=== PATIENT | female | born 1970 | race Caucasian/White ===

== ENCOUNTER 2018-09-08 16:09 | Emergency (ER) | payer OTHER ==
[~2018-09-08] VITALS: Ht 160 cm; Wt 60.2 kg
[2018-09-08 16:13] VITALS: Ht 160 cm; Wt 60.2 kg
[2018-09-08] MEDS ORDERED: ONDANSETRON 4 MG INJ IV STA (19:41)
[2018-09-08] MEDS ORDERED: SOD CHLORIDE 0.9% 1,000 ML IV STA (19:41)
[2018-09-08] MEDS ORDERED: IBUP-1542 PO (21:21)
[2018-09-08] MEDS ORDERED: ONDA4TAB14 PO (21:21)
--- NOTE | 2018-09-08 22:03 | ERD ---
ER Documentation Chief Complaint Chief Complaint ABD PAIN ,VOMITING WITH DIZZINESS SINCE MORNING HPI Patient is a 47-year-old female with hypertension who presents with dizziness and vomiting. The patient started this morning at 7 AM with the symptoms. The patient has mild abdominal pain she says from vomiting. The patient has no diarrhea. She has no fevers. She has had no treatment as of yet. The patient has no sick contacts. She does have a primary doctor. ROS All systems reviewed and are negative except as per history of present illness. Medications Home Meds Active Scripts Ondansetron (Ondansetron Odt) 4 Mg Tab.rapdis, 4 MG PO Q6H PRN for NAUSEA AND/OR VOMITING, #10 TAB Prov:BRENT HURTADO MD 09/08/18 Ibuprofen* (Motrin*) 600 Mg Tab, 600 MG PO Q6H PRN for PAIN AND OR ELEVATED TEMP, #30 TAB Prov:BRENT HURTADO MD 09/08/18 Allergies Allergies: Coded Allergies: No Known Allergy (Unverified , 09/08/18) PMhx/Soc Medical and Surgical Hx: pt denies Surgical Hx Hx Cardiac Disorders: Yes (HTN) Hx Alcohol Use: No Hx Substance Use: No Hx Tobacco Use: No Smoking Status: Never smoker FmHx Family History: No diabetes Physical Exam Vitals Vital Signs Date Temp Pulse Resp B/P (MAP) Pulse Ox O2 O2 Flow FiO2 Time Delivery Rate 09/08/18 97.2 66 18 196/95 100 16:13 (128) Physical Exam Const: No acute distress Head: Atraumatic Eyes: Normal Conjunctiva ENT: Normal External Ears, Nose and Mouth. Neck: Full range of motion. No meningismus. Resp: Clear to auscultation bilaterally Cardio: Regular rate and rhythm, no murmurs Abd: Soft, non tender, non distended. Normal bowel sounds Skin: No petechiae or rashes Back: No midline or flank tenderness Ext: No cyanosis, or edema Neur: Awake and alert Psych: Normal Mood and Affect Result Diagram: 09/08/18194809/08/181948 Results 24 hrs Laboratory Tests Test 09/08/18 19:49 09/08/18 19:56 White Blood Count 9.8 10^3/ul Red Blood Count 4.63 10^6/ul Hemoglobin 14.0 g/dl Hematocrit 42.1 % Mean Corpuscular Volume 90.9 fl Mean Corpuscular Hemoglobin 30.2 pg Mean Corpuscular Hemoglobin Concent 33.3 g/dl Red Cell Distribution Width 12.7 % Platelet Count 386 10^3/UL Mean Platelet Volume 9.6 fl Immature Granulocytes % 0.300 % Neutrophils % 79.1 % Lymphocytes % 18.7 % Monocytes % 1.7 % Eosinophils % 0.0 % Basophils % 0.2 % Nucleated Red Blood Cells % 0.0 /100WBC Immature Granulocytes # 0.030 10^3/ul Neutrophils # 7.7 10^3/ul Lymphocytes # 1.8 10^3/ul Monocytes # 0.2 10^3/ul Eosinophils # 0.0 10^3/ul Basophils # 0.0 10^3/ul Nucleated Red Blood Cells # 0.0 10^3/ul Urine Color YELLOW Urine Clarity CLOUDY Urine pH 8.0 Urine Specific [place] 1.023 Urine Ketones 1+ mg/dL Urine Nitrite NEGATIVE mg/dL Urine Bilirubin NEGATIVE mg/dL Urine Urobilinogen NEGATIVE mg/dL Urine Leukocyte Esterase NEGATIVE Adriana/ul Urine Microscopic RBC 9 /HPF Urine Microscopic WBC 4 /HPF Urine Squamous Epithelial Cells FEW /HPF Urine Amorphous Crystals FEW /HPF Urine Bacteria FEW /HPF Urine Mucus FEW /HPF Urine Hemoglobin NEGATIVE mg/dL Urine Glucose NEGATIVE mg/dL Urine Total Protein NEGATIVE mg/dl Sodium Level 138 mmol/L Potassium Level 4.5 mmol/L Chloride Level 101 mmol/L Carbon Dioxide Level 27 mmol/L Anion Gap 10 Blood Urea Nitrogen 19 mg/dl Creatinine 0.59 mg/dl Est Glomerular Filtrat Rate mL/min > 60 mL/min Glucose Level 100 mg/dl Calcium Level 10.2 mg/dl Total Bilirubin 0.3 mg/dl Direct Bilirubin 0.00 mg/dl Indirect Bilirubin 0.3 mg/dl Aspartate Amino Transf (AST/SGOT) 41 IU/L Alanine Aminotransferase (ALT/SGPT) 22 IU/L Alkaline Phosphatase 107 IU/L Total Protein 10.0 g/dl Albumin 5.2 g/dl Globulin 4.80 g/dl Albumin/Globulin Ratio 1.08 Lipase 74 U/L POC Beta HCG, Qualitative NEGATIVE Current Medications Medications Dose Sig/Alba Start Time Status Last (Trade) Ordered Route PRN Stop Time Admin Dose Reason Admin Sodium 1,000 ml @ Q1H STAT 09/08/18 DC 09/08/18 Chloride 1,000 mls/hr IV 19:41 19:56 09/08/18 20:40 Ondansetron 4 mg ONCE STAT 09/08/18 DC 09/08/18 HCl (Zofran IV 19:41 19:56 Inj) 09/08/18 19:42 Procedures/MDM Patient is a 47-year-old female with hypertension who presents with dizziness and vomiting. Laboratory studies were basically normal. The patient was given fluids and Zofran. At this point I doubt serious or joint abnormality. I doubt acute coronary syndrome. I doubt cholecystitis, pancreatitis, appendicitis, or bowel obstruction. I believe outpatient management is appropriate at this time. She will need close follow-up with the primary doctor within 24-48 hours. Departure Diagnosis: Primary Impression: Vomiting Vomiting type: unspecified Vomiting Intractability: non-intractable Nausea presence: with nausea Qualified Codes: R11.2 - Nausea with vomiting, unspecified Additional Impression: Abdominal pain Abdominal location: generalized Qualified Codes: R10.84 - Generalized abdominal pain Condition: Fair Patient Instructions: Abdominal Pain, Vomiting (6Y-Adult) Referrals: Dr. Beaulieu Additional Instructions: Call your primary care doctor TOMORROW for an appointment during the next 1-2 days.See the doctor sooner or return here if your condition worsens before your appointment time. BRENT HURTADO MD Sep 08, 2018 22:03
[2018-09-08 22:07] VITALS: BP 140/81; PULSE 63; RESP 18
== END 2018-09-08 22:10 | disposition home or self-care (01) ==
LOC: E/R 16:09
DX: R11.2 Nausea with vomiting, unspecified (principal); R10.84 Generalized abdominal pain; I10 Essential (primary) hypertension
CPT/HCPCS: 36415; 80053; 81001; 81025; 83690; 85025; 96374; J2405; J7030; Z7502